=== PATIENT | male | born 1955 | race Caucasian/White ===

== ENCOUNTER 2021-01-19 11:50 | Emergency (ER) | payer MEDICARE, OTHER ==
[~2021-01-19] VITALS: Ht 175.3 cm; Wt 88.5 kg
[2021-01-19] MEDS ORDERED: DEXAMETHASONE SOD PHOS INJ 4 MG/ML VIAL IM ONE (12:30)
[2021-01-19] MEDS ORDERED: DEXAMETHASONE SOD PHOS INJ 4 MG/ML VIAL ONE (12:41)
== END 2021-01-19 13:17 | disposition home or self-care (01) ==
LOC: FSED 12:25
DX: L23.7 Allergic contact dermatitis due to plants, except food (principal); I10 Essential (primary) hypertension; E78.5 Hyperlipidemia, unspecified
CPT/HCPCS: 99282; J1100